=== PATIENT | female | born 1950 | race Caucasian/White ===

== ENCOUNTER 2017-11-28 13:00 | Emergency (ER) | payer MEDICARE ==
[2017-11-28 13:00] VITALS: BP 133/75
--- NOTE | 2017-11-28 13:11 | PHYS DOC ---
General Chief Complaint: GENERALIZED BODY ACHES Stated Complaint: BODY ACHES: NOT FEELING WELL FOR TWO WEEKS Time Seen by MD: 13:08 Source: patient, family Exam Limitations: other Problems: History of Present Illness Initial Comments 67-year-old female presents to the ED initially complaining of cold symptoms, body aches, and fatigue for the past 2 weeks. Patient has had a recent bout with breast cancer, she's been treated with radiation. Initially patient complains about itchy watery eyes, sneezing, clear nasal discharge, nonproductive cough. She's been taking 2 versions of Mucinex concomitantly one containing phenylephrine and one containing pseudoephedrine in addition to dextromethorphan Tylenol and guaifenesin. She complains of generalized fatigue and body aches and appears to be very anxious. It was clear to me almost from the start that she was suffering from allergic rhinitis and overmedicating by doubling up on the stimulant medications listed above. I asked if she thought depression or anxiety might be playing a role. As we continue to talk the patient becomes emotionally labile, she admits that they've lost their finances and fair home, "everything" as a result of cost related to her cancer treatment. They lived in [place] but are staying here locally for 2 months with the patient's daughter before intending to travel to the [facility]. At this point the patient is sobbing expressing hopelessness however denying suicidal or homicidal ideation. Her spouse is at bedside he is very supportive and they seem to have a good relationship. I advised the patient that I elected to treat her on 2 levels, nasal spray Afrin equivalent to decrease her drainage and open up her nasal passages so she could breathe. Prednisone systemically overall shut down the inflammatory process relieving or eye symptoms or sneezing, and Xanax by mouth as she appears to be very anxious about all of the recent changes going on in their lives and likely made worse by taking too much of the stimulant medications listed above. She is agreeable. ED vital signs: 97.5, 73, 133/75, 97% room air Timing/Duration: constant (2 weeks) Severity: severe Modifying Factors: worse with medication Associated Symptoms: cough, headaches, malaise, weakness, other Allergies: Coded Allergies: No Known Drug Allergies (Unverified , 11/28/17) Past Medical History Medical History: cancer (breast cancer chemotherapy and radiation) Surgical History: noncontributory Social History Smoker: non-smoker Alcohol: none Drugs: none Review of Systems Constitutional: denies chills, denies diaphoresis, denies fever, malaise, weakness EENTM: denies eye pain, denies blurred vision, tearing, denies ear pain, denies ear discharge, nose congestion, throat pain, denies throat swelling, denies mouth pain, denies mouth swelling Respiratory: cough, denies orthopnea, denies shortness of breath, denies wheezing Cardiovascular: denies chest pain, denies palpitations, denies syncope Gastrointestinal: denies abdominal pain, denies nausea, denies vomiting Genitourinary: denies dysuria, denies frequency, denies hematuria Musculoskeletal: denies back pain, denies joint swelling, denies neck pain Psychiatric/Neurological: see HPI, denies headache, denies numbness, denies paresthesia Immunological/Allergic: see HPI Physical Exam General Appearance: WD/WN, moderate distress Eyes: bilateral eye PERRL, bilateral eye EOMI, bilateral eye other ( conjunctivae injected bilaterally with tearing) Ear, Nose, Throat: hearing grossly normal, normal pharynx (clear postnasal drip ), sinus pain/drainage, nasal congestion, other (turbinates swollen clear and yellow discharge,) Neck: full range of motion, supple, normal inspection Respiratory: normal breath sounds, no respiratory distress Cardiovascular: normal peripheral pulses, regular rate, rhythm Gastrointestinal: non tender, soft 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 Her mood has improved greatly with Xanax by mouth. They' re requesting discharge home at this time and a very appreciative. I discussed signs and symptoms to monitor as well as indications for urgent return to the department. I discussed [id number] prescription medications as well as alternate methods for stress management. Questions were answered to their satisfaction expressed agreement and understanding with the treatment plan as delineated below. Departure Time of Disposition: 14:14 Disposition: 01 HOME, SELF-CARE Diagnosis: allergic rhinitis, adjustment disorder Condition: IMPROVED Patient Instructions: Adjustment Disorder, Allergic Rhinitis Additional Instructions: Please review the patient education materials given by ED staff. Discontinue the stimulant based cold medications. Aggressive hydration with Gatorade and water. [id number] cetirizine for morning symptoms, diphenhydramine for PM symptoms. Use the Afrin dispensed: See the package for dosing instructions does not use for more than 48 hours. Prescription: Xanax 0.25 mg 20 qty 10, Nasonex, prednisone Change your clothes and shower when coming into the house for the evening to rid herself of allergens. Follow-up with her doctor in 7-10 days for recheck. Return to ED with new or changing symptoms. PAUL AGUIRRE DO Nov 28, 2017 13:11
[2017-11-28] MEDS ORDERED: ALPRAZolam 0.25 MG TABLET PO ONE (14:00)
[2017-11-28] MEDS ORDERED: predniSONE 10 MG TABLET PO ONE (14:00)
[2017-11-28] MEDS ORDERED: OXYMETAZOLINE 0.05% NASAL SPRAY 15ML BOTTLE. NS ONE (14:00)
[2017-11-28] MEDS ORDERED: ALPR0.25 PO (14:18)
[2017-11-28] MEDS ORDERED: MOME17SP NS (14:18)
[2017-11-28] MEDS ORDERED: PRED20TA PO (14:18)
== END 2017-11-28 14:25 | disposition home or self-care (01) ==
LOC: ER 13:00
DX: J30.9 Allergic rhinitis, unspecified (principal); F43.20 Adjustment disorder, unspecified; H57.8 Other specified disorders of eye and adnexa
CPT/HCPCS: 99284; J7512